=== PATIENT | female | born 1960 | race Caucasian/White ===

== ENCOUNTER 2016-09-15 19:33 | Emergency (ER) | payer OTHER ==
[2016-09-15 19:45] VITALS: BP 160/90; PULSE 86; TEMP 98; BMI 21.6
[2016-09-15] MEDS ORDERED: DIPHTH,PERTUSS(ACELL),TET 0.5 ML DISP.SYRIN IM ONE (23:26)
--- NOTE | 2016-09-15 23:32 | PDOC ---
History of Present Illness <Sophia Pichardo - Last Filed: 09/16/16 00:59> - General History Source: Patient, Other (STAFF FROM [facility]) Exam Limitations: Other (DEVELOPMENTALLY DISABLED) - History of Present Illness Initial Comments: 09/15/16 23:28 My Chief Complaint: fall down stairs hit her head, laceration rt. forehead, redness slight swelling rt. eye area History of Present Illness: Patient is a 56-year-old female developmentally disabled with history of mitral valve stenosis, hypothyroidism, hypertension, neurogenic bladder, mild to moderate severe hearing loss bilaterally, severe degenerative joint both hips, here with staff from the skilled nursing after patient fell down a few stairs hitting her head on the floor. Patient sustained L laceration to her right upper forehead that is vertical and extends slightly into scalp. Patient also has slight redness and swelling right lateral orbital area. Staff report that she lost her balance going down the stairs. Staff report that she did not lose any consciousness, has been acting as her usual self, with no nausea or vomiting and gait unchanged, no bleeding from ears or nose. Patient is pleasant cooperative able to do what is asked of her like sitting on the exam table. Patient does not have any record of tetanus will have to update here today. Pt. is not on anticoagulants. 09/15/16 23:34 09/15/16 23:39 09/15/16 23:43 Occurred: reports: just prior to arrival Severity: reports: mild Pain Location: reports: face (RIGHT FOREHEAD EXTENDING TO SCALP VERTICAL LACERATION , RT. LATERAL ORBITAL AREA ERYTHEMA/ MILD GORGE,A ) Method of Injury: Yes: fall (DOWN STAIRS HIT HEAD ON FLOOR ) Modifying Factors: improves with: None Loss of Consciousness: no loss of consciousness Associated Symptoms (Fall): other (ALERT, PLEASANT, AMBULATES WITHOUT DIFFICULTY , NO ALICIA, NAUSEA, VOMITING) <Nitza Herrmann - Last Filed: 09/17/16 22:58> - General Chief Complaint: Laceration Stated Complaint: HEAD LAC S/P FALL Time Seen by Provider: 09/15/16 21:16 Past History <Sophia Pichardo - Last Filed: 09/16/16 00:59> - Past Medical History Anemia: No Asthma: No Cancer: No Cardiac Disorders: Yes (MITRAL VALVE STENOSIS) CVA: No COPD: No CHF: No Dementia: No Diabetes: No GI Disorders: Yes (DIVERTICULOSIS, DIARRHEA,) Disorders: No HTN: Yes Hypercholesterolemia: No Liver Disease: No Psychiatric Problems: Yes (ANXIETY) Seizures: No Thyroid Disease: Yes (hypo) Other medical history: OA, - Psycho/Social/Smoking Cessation Hx Suicidal Ideation: No Smoking Status: No Smoking History: Never smoked Number of Cigarettes Smoked Daily: 0 Hx Alcohol Use: No Drug/Substance Use Hx: No Substance Use Type: None Hx Substance Use Treatment: No <AlizeNitza wright - Last Filed: 09/17/16 22:58> - Past Medical History Allergies/Adverse Reactions: Allergies Allergy/AdvReac Type Severity Reaction Status Date / Time No Known Allergies Allergy Verified 09/15/16 19:37 Home Medications: Ambulatory Orders Levothyroxine [Synthroid -] 125 mcg PO DAILY 09/23/15 Polyethylene Glycol 3350 [Miralax] 17 gm PO DAILY #2 bottle 12/20/15 Oxybutynin Chloride [Oxybutynin Chloride ER] 10 mg PO DAILY 01/07/16 Atenolol/Chlorthalidone [Atenolol-Chlorthalidone 50-25] 1 each PO DAILY Cholecalciferol (Vitamin D3) [Vitamin D3] 1,000 unit PO DAILY 03/26/16 Lisinopril 10 mg PO DAILY 03/26/16 Docusate Sodium 100 mg PO DAILY 03/30/16 Omeprazole 20 mg PO 09/15/16 Review of Systems - Review of Systems Able to Perform ROS?: Yes Constitutional: No: Symptoms Reported HEENTM: No: Symptoms Reported Respiratory: No: Symptoms reported Cardiac (ROS): No: Symptoms Reported ABD/GI: No: Symptoms Reported : No: Symptoms Reported Musculoskeletal: No: Symptoms Reported Integumentary: Yes: Erythema (rt. lateral orbital area with slight edema), Other (vertical laceration rt. upper forehead extending mininally into scalp approx 5 cm x 0.25 cm) Neurological: No: Symptoms reported <AlizeNitza - Last Filed: 09/17/16 22:58> *Physical Exam - Vital Signs Last Vital Signs Temp Pulse Resp BP Pulse Ox 98 F 86 18 160/90 98 09/15/16 19:38 09/15/16 19:38 09/15/16 19:38 09/15/16 19:38 09/15/16 19:38 <Sophia Pichardo - Last Filed: 09/16/16 00:59> - Vital Signs Last Vital Signs Temp Pulse Resp BP Pulse Ox 98 F 86 18 160/90 98 09/15/16 19:38 09/15/16 19:38 09/15/16 19:38 09/15/16 19:38 09/15/16 19:38 - Physical Exam General Appearance: Yes: Appropriately Dressed HEENT: positive: EOMI (grossly intact ), DELANO, Normal ENT Inspection Neck: negative: Tender, Decreased range of motion, Lymphadenopathy (R), Lymphadenopathy (L), Rigidity, Tender lateral, Tender midline Respiratory/Chest: positive: Lungs Clear, Normal Breath Sounds. negative: Chest Tender, Respiratory Distress Cardiovascular: positive: Regular Rhythm, Regular Rate, S1, S2 Musculoskeletal: positive: Normal Inspection. negative: CVA Tenderness, CVA Tenderness (R), CVA Tenderness (L), Decreased Range of Motion, Vertebral Tenderness Extremity: positive: Normal Capillary Refill, Normal Inspection, Normal Range of Motion Integumentary: positive: Erythema (rt. lateral upper orbital area with slight edema ), Other (vertical laceration rt. upper forehead extending minimally into scalp approx 5 cm x 0.25 cm) Neurologic: positive: Alert, Respond to painful stimul, Responsive <Nitza Herrmann - Last Filed: 09/17/16 22:58> Procedures - Consent Consent obtained: From Patient - Laceration/Wound Repair Right Face Wound Length: 2.6 to 5.0 cm Wound Explored: clean Wound's Depth, Shape: linear (vertical rt. upper forehead ) Irrigated w/ Saline: Yes Betadine Prep: Yes Anesthesia: 1% Lidocaine Amount of Anesthetic (ccs): 3 Wound Repaired With: Sutures, Steri-strips Suture Size/Type: 5:0 Number of Sutures: 6 (interrrupted ) <Nitza Herrmann - Last Filed: 09/17/16 22:58> ED Treatment Course - Medications Given in the ED: ED Medications Discontinued Medications Generic Name Dose Route Start Last Admin Trade Name Freq PRN Reason Stop Dose Admin Diphtheria/Tetanus/Acell Pertussis 0.5 ml 09/15/16 23:26 09/15/16 23:29 Boostrix - IM 09/15/16 23:27 0.5 ml .ONCE ONE Administration <Sophia Pichardo - Last Filed: 09/16/16 00:59> - RADIOLOGY Radiology Studies Ordered: Category Date Time Status FACIAL BONES CT W/O CONTRAST [CT] Stat CT Scan 09/15/16 23:[address] WITHOUT CONTRAST [CT] Stat CT Scan 09/15/16 23:00 Taken <Nitza Herrmann - Last Filed: 09/17/16 22:58> Medical Decision Making - Medical Decision Making 09/15/16 23:39 09/15/16 23:39 Patient is a 56-year-old female developmentally disabled with history of mitral valve stenosis, hypothyroidism, hypertension, neurogenic bladder, mild to moderate severe hearing loss bilaterally, severe degenerative joint both hips, here with staff from the skilled nursing after patient fell down a few stairs hitting her head on the floor. Patient sustained L laceration to her right upper forehead that is vertical and extends slightly into scalp. Patient also has slight redness and swelling right lateral orbital area. Staff report that she lost her balance going down the stairs. Staff report that she did not lose any consciousness, has been acting as her usual self, with no nausea or vomiting and gait unchanged, no bleeding from ears or nose. Patient is pleasant cooperative able to do what is asked of her like sitting on the exam table. Patient does not have any record of tetanus will have to update here today. Patient is not on any oral anticoagulants Right upper forehead vertical laceration extending minimally into scalp Slight contusion of right upper lateral orbital area rule out orbital fracture Rule out internal injury of head PLAN: TDAP 0.5 ml Im Interrupted sutures applied to laceration on forehead without complication CT head without contrast Facial CT without contrast signed out to Dr. Lieberman pending CT of head and facial without contrast 09/15/16 23:42 09/15/16 23:43 09/17/16 22:57 <Nitza Herrmann - Last Filed: 09/17/16 22:58> *DC/Admit/Observation/Transfer <Sophia Pichardo - Last Filed: 09/16/16 00:59> <Nitza Herrmann - Last Filed: 09/17/16 22:58> Diagnosis at time of Disposition: Laceration of forehead without complication Qualifiers: Encounter type: initial encounter Qualified Code(s): S01.81XA - Laceration without foreign body of other part of head, initial encounter Contusion of right orbital tissues Qualifiers: Encounter type: initial encounter Qualified Code(s): S05.11XA - Contusion of eyeball and orbital tissues, right eye, initial encounter - Discharge Dispostion Disposition: HOME Condition at time of disposition: Stable - Referrals Referrals: Bro Brock MD [Primary Care Provider] - - Patient Instructions Printed Discharge Instructions: DI for Laceration Repair, DI for Suture Removal Additional Instructions: May wash face tomorrow and hair do not scrub area at suture site Return here for suture removal in 6 days or sooner if any redness around wound, discharge from wound or change in level of alertness, vomiting or change in ability to walk Cleanse suture area daily with antibacterial soap and water pat dry apply tiny amount of bacitracin cover with Band-Aid when out-of-home let air out at night Today your tetanus diphtheria and pertussis vaccine was updated Give acetaminophen 650 mg every 6 hours as needed for pain Staff with patient voiced understanding of discharge instructions and all questions were answered
== END 2016-09-16 01:50 | disposition home or self-care (01) ==
LOC: JER 19:33
PROC: 0HQ1XZZ Repair Face Skin, External Approach (ICD-10-PCS; principal; 2016-09-15)
PROC: 3E0234Z Introduction of Serum, Toxoid and Vaccine into Muscle, Percutaneous Approach (ICD-10-PCS; 2016-09-15)
DX: S01.81XA Laceration without foreign body of other part of head, initial encounter (principal); S05.11XA Contusion of eyeball and orbital tissues, right eye, initial encounter; I05.0 Rheumatic mitral stenosis; E03.9 Hypothyroidism, unspecified; I10 Essential (primary) hypertension; N31.9 Neuromuscular dysfunction of bladder, unspecified; M16.0 Bilateral primary osteoarthritis of hip; F81.9 Developmental disorder of scholastic skills, unspecified; W10.9XXA Fall (on) (from) unspecified stairs and steps, initial encounter; Y93.9 Activity, unspecified; Y92.9 Unspecified place or not applicable
CPT/HCPCS: 12013-25; 70450-TC; 70486-TC; 90471; 90715; 99281-25

== ENCOUNTER 2018-01-19 10:09 | Day surgery (SDC) | payer OTHER ==
[2018-01-14 15:25] VITALS: BMI 20.7
[2018-01-19] MEDS ORDERED: PROPOFOL 20 ML ONE ×2 (10:20)
[2018-01-19 13:03] VITALS: TEMP 98
[2018-01-19 13:08] VITALS: PULSE 84
[2018-01-19 13:22] VITALS: BP 150/78
== END 2018-01-19 13:23 ==
LOC: FASU-ENDO 10:09
PROVIDERS: ATTEND Internal Medicine Gastroenterology
PROC: 0DJD8ZZ Inspection of Lower Intestinal Tract, Via Natural or Artificial Opening Endoscopic (ICD-10-PCS; principal; 2018-01-19 11:30)
DX: R10.9 Unspecified abdominal pain (principal); K64.8 Other hemorrhoids